=== PATIENT | female | born 1970 | race Caucasian/White ===

== ENCOUNTER 2019-03-03 22:38 | Inpatient (IN) | payer MEDICAID ==
[~2019-03-03] VITALS: Ht 165.1 cm; Wt 100.0 kg
[2019-03-03] MEDS ORDERED: CALCIUM CHLORIDE 10%, 10ML SYR ONE (22:46)
[2019-03-03] MEDS ORDERED: CALCIUM CHLORIDE 13.6 MEQ in SODIUM CHLORIDE 0.9% 100 ML IV ONE (23:00)
[2019-03-03] MEDS ORDERED: CALCIUM CHLORIDE 10%, 10ML SYR IVPush ONE (23:30)
[2019-03-03] MEDS ORDERED: PLEASE ENTER ALLERGIES MC SCH (23:30)
[2019-03-04 01:08] LABS: ALBUMIN 3.2 g/dL (3.4-5.0); ANION GAP 10 mmol/L (5-15); CALCIUM 9.7 mg/dL (8.5-10.1); CHLORIDE 102 mmol/L (98-107); CREATININE 4.32 mg/dL (0.55-1.02)
[2019-03-04 01:15] LABS: INTERNATIONAL NORMALIZED RATIO 1.7 (0.93-1.1); PROTHROMBIN TIME 17.5 Seconds (9.6-11.5)
[2019-03-04 01:27] LABS: ALANINE AMINOTRANSFERASE 2904 U/L (12-78); ALKALINE PHOSPHATASE 196 U/L (45-117); BILIRUBIN,TOTAL 1.4 mg/dL (0.2-1.0); TOTAL PROTEIN 6.8 g/dL (6.4-8.2)
[2019-03-04 01:30] LABS: MEAN CORPUSCULAR HEMOGLOBIN 29.7 pg (27.0-34.8); MEAN CORPUSCULAR HGB CONC 31.9 g/dL (32.4-35.8); MEAN CORPUSCULAR VOLUME 92.8 fL (80-100); MEAN PLATELET VOLUME 7.5 fL (7.4-10.4); PLATELET COUNT 171 x10^3/uL (130-400); RED BLOOD COUNT 4.54 x10^6/uL (3.82-5.3); RED CELL DISTRIBUTION WIDTH 15.9 % (9.6-15.2)
[2019-03-04 01:31] LABS: MD YES
[2019-03-04 01:32] LABS: ANISOCYTOSIS 1+; LYMPH#(MANUAL) 1.23 x10^3/uL (1-3.4); LYMPHS% (MANUAL) 10 % (22-44); MONOS#(MANUAL) 0.62 x10^3/uL (0.3-2.7); MONOS% (MANUAL) 5 % (2-9); MYELOCYTES# (MANUAL) 0.12 x10^3/uL (0-0); MYELOCYTES% (MANUAL) 1 % (0-0); NRBC % (MANUAL) 2 % (0-1); POLYCHROMASIA 1+; REACTIVE LYMPHS # (MANUAL) 0.12 x10^3/uL (0-0); REACTIVE LYMPHS % (MANUAL) 1 % (0-0); SEG#(MANUAL) 10.21 x10^3/uL (1.8-6.8); SEGS% (MANUAL) 83 % (42-75)
[2019-03-04 01:33] LABS: <PLATELET ESTIMATE> ADEQUATE; <PLT MORPHOLOGY> NORMAL PLT MORPH
[2019-03-04 02:19] LABS: CREATINE KINASE, TOTAL 4892 U/L (26-192)
[2019-03-04] MEDS ORDERED: ENAL20TA PO (02:29)
[2019-03-04] MEDS ORDERED: ATOR20TA PO (02:29)
[2019-03-04] MEDS ORDERED: METF1000 PO (02:29)
[2019-03-04] MEDS ORDERED: DULA1.5P SC (02:29)
[2019-03-04] MEDS ORDERED: ZOLP-413 PO (02:29)
[2019-03-04] MEDS ORDERED: ASPI-496 PO (02:29)
[2019-03-04] MEDS ORDERED: OXYC10TA6 PO (02:29)
[2019-03-04] MEDS ORDERED: VENL75CA6 PO (02:29)
[2019-03-04] MEDS ORDERED: VARE0.5T PO (02:29)
[2019-03-04] MEDS ORDERED: EMPA10TA PO (02:29)
[2019-03-04] MEDS ORDERED: HYDR25TA6 PO (02:29)
[2019-03-04] MEDS ORDERED: FURO-93 PO (02:29)
[2019-03-04] MEDS: INSULIN LISPRO 100 UNITS/ML, PEN SQ-INSULIN SCH ×5 (02:30→21:13)
[2019-03-04] MEDS ORDERED: HEPARIN 5,000 UNITS/ML, 1ML SQ SCH (02:30)
[2019-03-04] MEDS ORDERED: DOCUSATE 100 MG CAPSULE PO PRN (02:30)
[2019-03-04] MEDS ORDERED: hydrALAzine 20 MG/ML, 1ML IVPush PRN (02:30)
[2019-03-04] MEDS ORDERED: PROMETHAZINE 25 MG/ML, 1ML IM PRN (02:30)
[2019-03-04] MEDS ORDERED: ONDANSETRON ODT 4 MG PO PRN (02:30)
[2019-03-04] MEDS ORDERED: POLYETHYLENE GLYCOL 17 GM PACKET PO PRN (02:30)
[2019-03-04] MEDS ORDERED: NITROGLYCERIN 0.4 MG BOTTLE (25 TABS) SL PRN (02:30)
[2019-03-04] MEDS ORDERED: ONDANSETRON 2MG/ML, 2ML IVPush PRN (02:30)
[2019-03-04] MEDS ORDERED: BISACODYL 10 MG SUPP PR PRN (02:30)
[2019-03-04] MEDS ORDERED: morphine SULFATE 10 MG/ML, 1ML IVPush PRN (02:30)
[2019-03-04 03:10] LABS: FREE T4 (FREE THYROXINE) 1.1 ng/dL (0.76-1.46)
[2019-03-04] MEDS: SODIUM CHLORIDE 0.9% 1,000 ML IV SCH ×3 (03:13→20:56)
[2019-03-04] MEDS: CEFTRIAXONE PMX 2GM/50ML 50 ML IV SCH (03:13)
[2019-03-04 04:00] VITALS: BP_SYST 90; BP_DIAS 56; BP_DIAS 57
[2019-03-04 04:40] LABS: AMPHETAMINE SCREEN, URINE Positive (Negative); BARBITURATE SCREEN, URINE Negative (Negative); BENZODIAZEPINE SCREEN, URINE Negative (Negative); CANNABINOID SCREEN, URINE Negative (Negative); COCAINE SCREEN, URINE Negative (Negative); METHADONE SCREEN, URINE Negative (Negative); OPIATE SCREEN, URINE Positive (Negative)
[2019-03-04 04:44] LABS: MICROSCOPIC INDICATED
[2019-03-04 04:54] LABS: CULTURE INDICATED? NO
[2019-03-04] MEDS: ASPIRIN 325 MG TABLET EC PO SCH (05:47)
[2019-03-04] MEDS ORDERED: ASPIRIN 81 MG TABLET EC PO SCH (09:00)
[2019-03-04] MEDS: VENLAFAXINE 75 MG CAP ER PO SCH (09:18)
[2019-03-04] MEDS ORDERED: OMNIPAQUE 350 MG/ML, 100ML BOTTLE ONE (11:00)
[2019-03-04] MEDS ORDERED: PHYTONADIONE 10 MG/ML, 1ML SQ ONE (11:00)
[2019-03-04] MEDS ORDERED: HEPARIN 5,000 UNITS/ML, 1ML IV ONE (12:00)
[2019-03-04] MEDS: CHLORHEXIDINE 15 ML UDC MM SCH ×3 (12:34→23:17)
[2019-03-04 13:08] LABS: ALBUMIN 2.9 g/dL (3.4-5.0); ANION GAP 8 mmol/L (5-15); CALCIUM 9.4 mg/dL (8.5-10.1); CHLORIDE 107 mmol/L (98-107); CREATININE 2.56 mg/dL (0.55-1.02)
[2019-03-04 13:25] LABS: ALANINE AMINOTRANSFERASE 2274 U/L (12-78); ALKALINE PHOSPHATASE 176 U/L (45-117); BILIRUBIN,TOTAL 0.9 mg/dL (0.2-1.0); CREATINE KINASE, TOTAL 4799 U/L (26-192); TOTAL PROTEIN 6.2 g/dL (6.4-8.2)
[2019-03-04] MEDS: HEPARIN 25,000 UNITS/500ML PMX 500 ML IV PRN (13:47)
[2019-03-04 14:19] LABS: CREATININE,URINE RANDOM 84.8 mg/dL
[2019-03-04] MEDS ORDERED: METOPROLOL TARTRATE 25 MG TABLET PO SCH (18:00)
[2019-03-04] MEDS: HEPARIN 5,000 UNITS/ML, 1ML IV PRN (20:42)
[2019-03-04] MEDS ORDERED: ATORVASTATIN 20 MG TABLET PO SCH (21:00)
[2019-03-04] MEDS: OXYcodone IR 5MG TABLET PO PRN (21:18)
[2019-03-05] MEDS: CEFTRIAXONE PMX 2GM/50ML 50 ML IV SCH (03:03)
[2019-03-05 03:31] LABS: INTERNATIONAL NORMALIZED RATIO 1.3 (0.93-1.1); PROTHROMBIN TIME 13.5 Seconds (9.6-11.5)
[2019-03-05 03:34] LABS: ALBUMIN 2.5 g/dL (3.4-5.0); ANION GAP 6 mmol/L (5-15); CALCIUM 8.8 mg/dL (8.5-10.1); CHLORIDE 108 mmol/L (98-107); CHOLESTEROL, TOTAL 100 mg/dL (140-239); CREATININE 1.42 mg/dL (0.55-1.02); TRIGLYCERIDES 146 mg/dL (50-200); VLDL CHOLESTEROL 29 mg/dL (0-25)
[2019-03-05 03:42] LABS: ALANINE AMINOTRANSFERASE 1622 U/L (12-78); ALKALINE PHOSPHATASE 163 U/L (45-117); CHOL/HDL RATIO 5.3; HDL CHOL % 19 % (28-40); HDL CHOLESTEROL (DIRECT) 19 mg/dL (40-60); LDL CHOLESTEROL,CALCULATED 52 mg/dL (54-169); LDL/HDL RATIO 2.7 (0.5-3.0); TOTAL PROTEIN 5.9 g/dL (6.4-8.2)
[2019-03-05] MEDS: HEPARIN 5,000 UNITS/ML, 1ML IV PRN ×3 (03:54→19:23)
[2019-03-05] MEDS: INSULIN LISPRO 100 UNITS/ML, PEN SQ-INSULIN SCH ×4 (03:55→20:38)
[2019-03-05 04:00] VITALS: BP 109/66
[2019-03-05 04:07] LABS: BASOPHILS # (AUTO) 0.03 x10^3/uL (0-0.1); BASOPHILS % (AUTO) 0 % (0-1); EOSINOPHILS # (AUTO) 0.01 x10^3/uL (0-0.4); EOSINOPHILS % (AUTO) 0 % (1-7); LYMPHOCYTES # (AUTO) 1.26 x10^3/uL (1-3.4); LYMPHOCYTES % (AUTO) 16 % (22-44); MD SCAN; MEAN CORPUSCULAR HEMOGLOBIN 29.7 pg (27.0-34.8); MEAN CORPUSCULAR HGB CONC 32.2 g/dL (32.4-35.8); MEAN CORPUSCULAR VOLUME 92.1 fL (80-100); MONOCYTES % (AUTO) 5 % (2-9); NEUTROPHILS # (AUTO) 6.32 x10^3/uL (1.8-6.8); NEUTROPHILS % (AUTO) 79 % (42-75); PLATELET COUNT 99 x10^3/uL (130-400); RED BLOOD COUNT 3.93 x10^6/uL (3.82-5.3)
[2019-03-05] MEDS: CHLORHEXIDINE 15 ML UDC MM SCH ×4 (06:02→23:00)
[2019-03-05] MEDS: ASPIRIN 325 MG TABLET EC PO SCH (06:03)
[2019-03-05] MEDS: METOPROLOL TARTRATE 25 MG TABLET PO SCH ×2 (06:03→18:20)
[2019-03-05] MEDS: SODIUM CHLORIDE 0.9% 1,000 ML IV SCH (06:06)
[2019-03-05] MEDS: VENLAFAXINE 75 MG CAP ER PO SCH (09:52)
[2019-03-05] MEDS: SODIUM CHLORIDE FLUSH 3ML SYRINGE IVF SCH ×2 (09:53→19:28)
[2019-03-05] MEDS: OXYcodone IR 5MG TABLET PO PRN ×2 (10:03→20:37)
[2019-03-05] MEDS: HEPARIN 25,000 UNITS/500ML PMX 500 ML IV PRN (13:46)
[2019-03-05] MEDS: LISINOPRIL 5 MG TABLET PO SCH (20:38)
[2019-03-06] MEDS: HEPARIN 5,000 UNITS/ML, 1ML IV PRN ×3 (01:52→23:17)
[2019-03-06] MEDS: CEFTRIAXONE PMX 2GM/50ML 50 ML IV SCH (03:07)
[2019-03-06 04:00] VITALS: BP 92/58
[2019-03-06] MEDS: CHLORHEXIDINE 15 ML UDC MM SCH ×4 (04:54→21:22)
[2019-03-06] MEDS: METOPROLOL TARTRATE 25 MG TABLET PO SCH ×3 (04:54→21:21)
[2019-03-06] MEDS: ASPIRIN 325 MG TABLET EC PO SCH (04:54)
[2019-03-06] MEDS: INSULIN LISPRO 100 UNITS/ML, PEN SQ-INSULIN SCH ×4 (05:23→21:22)
[2019-03-06 07:53] LABS: ALBUMIN 2.3 g/dL (3.4-5.0); ANION GAP 8 mmol/L (5-15); CALCIUM 8.1 mg/dL (8.5-10.1); CHLORIDE 104 mmol/L (98-107); CREATININE 0.74 mg/dL (0.55-1.02)
[2019-03-06 08:00] LABS: ALANINE AMINOTRANSFERASE 1102 U/L (12-78); ALKALINE PHOSPHATASE 190 U/L (45-117); CREATINE KINASE, TOTAL 571 U/L (26-192); TOTAL PROTEIN 5.8 g/dL (6.4-8.2)
[2019-03-06] MEDS: HEPARIN 25,000 UNITS/500ML PMX 500 ML IV PRN ×2 (08:31→23:17)
[2019-03-06] MEDS: SODIUM CHLORIDE FLUSH 3ML SYRINGE IVF SCH ×2 (09:00→21:00)
[2019-03-06] MEDS: VENLAFAXINE 75 MG CAP ER PO SCH (09:30)
[2019-03-06] MEDS: LISINOPRIL 5 MG TABLET PO SCH ×2 (09:30→21:22)
[2019-03-06] MEDS ORDERED: POTASSIUM CHLORIDE 20 MEQ TAB.ER.PRT PO ONE (14:00)
[2019-03-06 19:41] VITALS: BP 98/58
[2019-03-07 02:00] VITALS: BP 111/77
[2019-03-07] MEDS: CEFTRIAXONE PMX 2GM/50ML 50 ML IV SCH (03:12)
[2019-03-07] MEDS: CHLORHEXIDINE 15 ML UDC MM SCH ×4 (05:05→21:41)
[2019-03-07] MEDS: ASPIRIN 325 MG TABLET EC PO SCH (05:05)
[2019-03-07] MEDS: INSULIN LISPRO 100 UNITS/ML, PEN SQ-INSULIN SCH ×4 (07:00→21:44)
[2019-03-07 07:03] VITALS: BP 113/80
[2019-03-07] MEDS: VENLAFAXINE 75 MG CAP ER PO SCH (08:20)
[2019-03-07] MEDS: LISINOPRIL 5 MG TABLET PO SCH ×2 (08:20→21:41)
[2019-03-07] MEDS: METOPROLOL TARTRATE 25 MG TABLET PO SCH (08:21)
[2019-03-07] MEDS: SODIUM CHLORIDE FLUSH 3ML SYRINGE IVF SCH ×2 (08:22→21:00)
[2019-03-07] MEDS: HEPARIN 5,000 UNITS/ML, 1ML IV PRN ×4 (08:23→21:44)
[2019-03-07] MEDS: HEPARIN 25,000 UNITS/500ML PMX 500 ML IV PRN (12:57)
[2019-03-07 13:37] VITALS: BP 110/70
[2019-03-07 19:30] VITALS: BP 105/69
[2019-03-07] MEDS: DIPHENHYDRAMINE 25 MG CAPSULE PO PRN (21:57)
[2019-03-08] MEDS: HEPARIN 25,000 UNITS/500ML PMX 500 ML IV PRN ×3 (00:32→22:25)
[2019-03-08 01:28] VITALS: BP 111/78
[2019-03-08] MEDS: CEFTRIAXONE PMX 2GM/50ML 50 ML IV SCH (02:53)
[2019-03-08 04:41] LABS: ALBUMIN 2.3 g/dL (3.4-5.0); ANION GAP 8 mmol/L (5-15); CALCIUM 7.9 mg/dL (8.5-10.1); CHLORIDE 100 mmol/L (98-107)
[2019-03-08 04:44] LABS: ALANINE AMINOTRANSFERASE 616 U/L (12-78); ALKALINE PHOSPHATASE 249 U/L (45-117); BILIRUBIN,TOTAL 1.2 mg/dL (0.2-1.0); CREATININE 0.63 mg/dL (0.55-1.02); TOTAL PROTEIN 6.1 g/dL (6.4-8.2)
[2019-03-08] MEDS: CHLORHEXIDINE 15 ML UDC MM SCH ×4 (05:42→23:39)
[2019-03-08] MEDS: ASPIRIN 325 MG TABLET EC PO SCH (05:42)
[2019-03-08 07:21] VITALS: BP 118/83
[2019-03-08] MEDS: LISINOPRIL 5 MG TABLET PO SCH ×2 (07:53→21:00)
[2019-03-08] MEDS: VENLAFAXINE 75 MG CAP ER PO SCH (07:53)
[2019-03-08] MEDS: INSULIN LISPRO 100 UNITS/ML, PEN SQ-INSULIN SCH ×4 (07:53→21:01)
[2019-03-08] MEDS: SODIUM CHLORIDE FLUSH 3ML SYRINGE IVF SCH ×2 (07:54→21:00)
[2019-03-08 13:06] VITALS: BP 113/78
[2019-03-08 20:58] VITALS: BP 112/78
[2019-03-08] MEDS: DIPHENHYDRAMINE 25 MG CAPSULE PO PRN (21:01)
[2019-03-09 01:31] VITALS: BP 116/81
[2019-03-09] MEDS: CEFTRIAXONE PMX 2GM/50ML 50 ML IV SCH (02:51)
[2019-03-09] MEDS: ASPIRIN 325 MG TABLET EC PO SCH (05:32)
[2019-03-09] MEDS: CHLORHEXIDINE 15 ML UDC MM SCH ×4 (05:32→22:03)
[2019-03-09 07:48] VITALS: BP 122/87
[2019-03-09] MEDS: LISINOPRIL 5 MG TABLET PO SCH ×2 (08:45→22:04)
[2019-03-09] MEDS: VENLAFAXINE 75 MG CAP ER PO SCH (08:45)
[2019-03-09] MEDS: HEPARIN 25,000 UNITS/500ML PMX 500 ML IV PRN (09:37)
[2019-03-09] MEDS: SODIUM CHLORIDE FLUSH 3ML SYRINGE IVF SCH ×2 (09:39→21:00)
[2019-03-09] MEDS: INSULIN LISPRO 100 UNITS/ML, PEN SQ-INSULIN SCH ×4 (09:39→22:03)
[2019-03-09] MEDS: SODIUM CHLORIDE 0.9% 1,000 ML IV SCH ×3 (09:40→20:36)
[2019-03-09] MEDS ORDERED: LIDOCAINE-MPF 1%, 5ML ONE (11:46)
[2019-03-09] MEDS ORDERED: BIVALIRUDIN 250 MG ONE (11:46)
[2019-03-09] MEDS ORDERED: MIDAZOLAM 1 MG/ML, 5ML ONE (11:46)
[2019-03-09] MEDS ORDERED: TICAGRELOR 90 MG TABLET ONE (11:46)
[2019-03-09] MEDS ORDERED: VERAPAMIL 2.5 MG/ML, 2ML ONE (11:46)
[2019-03-09] MEDS ORDERED: HEPARIN 1,000 UNITS/ML, 10ML ONE (11:46)
[2019-03-09] MEDS ORDERED: FENTANYL PF 100 MCG/2ML ONE (11:46)
[2019-03-09 12:48] VITALS: BP 118/84
[2019-03-09 19:03] VITALS: BP 110/76
[2019-03-09] MEDS: DIPHENHYDRAMINE 25 MG CAPSULE PO PRN (22:06)
[2019-03-10 00:43] VITALS: BP 120/86
[2019-03-10] MEDS: CEFTRIAXONE PMX 2GM/50ML 50 ML IV SCH (03:24)
[2019-03-10 04:31] LABS: ANION GAP 8 mmol/L (5-15); CALCIUM 8.1 mg/dL (8.5-10.1); CHLORIDE 99 mmol/L (98-107); CREATININE 0.73 mg/dL (0.55-1.02)
[2019-03-10] MEDS: SODIUM CHLORIDE 0.9% 1,000 ML IV SCH ×3 (04:36→11:10)
[2019-03-10 05:34] VITALS: BP 128/92
[2019-03-10] MEDS: ASPIRIN 325 MG TABLET EC PO SCH (05:36)
[2019-03-10] MEDS: CHLORHEXIDINE 15 ML UDC MM SCH ×2 (05:36→11:10)
[2019-03-10] MEDS ORDERED: METOPROLOL SUCCINATE 25 MG TAB.ER.24H PO SCH (06:00)
[2019-03-10 08:00] VITALS: BP 114/77
[2019-03-10] MEDS: VENLAFAXINE 75 MG CAP ER PO SCH (08:41)
[2019-03-10] MEDS: LISINOPRIL 5 MG TABLET PO SCH (08:42)
[2019-03-10] MEDS: INSULIN LISPRO 100 UNITS/ML, PEN SQ-INSULIN SCH ×2 (08:42→11:10)
[2019-03-10] MEDS: SODIUM CHLORIDE FLUSH 3ML SYRINGE IVF SCH (08:42)
[2019-03-10 08:43] VITALS: BP 124/90
[2019-03-10] MEDS ORDERED: SPIRONOLACTONE 25 MG TABLET PO SCH (09:00)
[2019-03-10] MEDS ORDERED: METO25TA91 PO (11:40)
[2019-03-10] MEDS ORDERED: SPIR25TA PO (11:40)
[2019-03-10] MEDS ORDERED: LISI5TAB7 PO (11:40)
[2019-03-10] MEDS ORDERED: RIVA15TA PO (11:48)
[2019-03-10] MEDS ORDERED: RIVA20TA PO (11:48)
== END 2019-03-10 14:05 | disposition home or self-care (01) | DRG 280 ==
LOC: ED 03-04 02:00 → EDIP 03-04 02:29 → ICU 03-04 02:58 → CCU 03-05 22:51 → 5SO 03-06 16:25 → DCLOUNGE 03-10 13:45
PROVIDERS: ADMIT Internal Medicine; ATTEND Internal Medicine
PROC: 4A023N7 Measurement of Cardiac Sampling and Pressure, Left Heart, Percutaneous Approach (ICD-10-PCS; principal; 2019-03-09)
PROC: B2111ZZ Fluoroscopy of Multiple Coronary Arteries using Low Osmolar Contrast (ICD-10-PCS; 2019-03-09)
PROC: B2151ZZ Fluoroscopy of Left Heart using Low Osmolar Contrast (ICD-10-PCS; 2019-03-09)
DX: I21.4 Non-ST elevation (NSTEMI) myocardial infarction (principal); G92 Toxic encephalopathy; I26.99 Other pulmonary embolism without acute cor pulmonale; K72.00 Acute and subacute hepatic failure without coma; N17.0 Acute kidney failure with tubular necrosis; B17.9 Acute viral hepatitis, unspecified; D68.4 Acquired coagulation factor deficiency; E87.1 Hypo-osmolality and hyponatremia; E87.2 Acidosis; I42.9 Cardiomyopathy, unspecified; I50.22 Chronic systolic (congestive) heart failure; J98.11 Atelectasis; R57.9 Shock, unspecified; E11.51 Type 2 diabetes mellitus with diabetic peripheral angiopathy without gangrene; E11.65 Type 2 diabetes mellitus with hyperglycemia; E78.5 Hyperlipidemia, unspecified; F15.10 Other stimulant abuse, uncomplicated; E87.5 Hyperkalemia; F17.210 Nicotine dependence, cigarettes, uncomplicated; F32.9 Major depressive disorder, single episode, unspecified; I11.0 Hypertensive heart disease with heart failure; I25.10 Atherosclerotic heart disease of native coronary artery without angina pectoris; I27.20 Pulmonary hypertension, unspecified; K76.0 Fatty (change of) liver, not elsewhere classified; K80.20 Calculus of gallbladder without cholecystitis without obstruction; Z90.710 Acquired absence of both cervix and uterus
CPT/HCPCS: 36415; 36600; 71045; 71275; 80048; 80053; 80061; 80074; 80307; 81001; 82550; 82570; 82803; 82962; 83036; 83690; 83735; 83880; 84300; 84439; 84443; 84484; 85025; 85520; 85610; 85730; 86706; 87040; 87081; 93005; 93306; 93321; 93325; 93356; 93458; 99156; 99291; C1769; C1894; G0378; J0583; J0696; J1644; J2250; J3010; J3430; Q9957; Q9967; C8924; J1815; J7030; Q0163